=== PATIENT | male | born 1995 | race Caucasian/White ===

== ENCOUNTER → 2022-08-11 | Emergency (ER) | payer SELFPAY ==
[~2022-08-11] VITALS: Ht 177.8 cm; Wt 90.9 kg
[2022-08-11 18:05] VITALS: BP 175/98; PULSE 78; TEMP 97.8
== END ==
LOC: COL.ER 17:45
DX: S92.511A Displaced fracture of proximal phalanx of right lesser toe(s), initial encounter for closed fracture (principal); F17.200 Nicotine dependence, unspecified, uncomplicated; W50.0XXA Accidental hit or strike by another person, initial encounter; Y93.71 Activity, boxing